=== PATIENT | female | born 1935 | race Caucasian/White ===

== ENCOUNTER 2017-10-03 08:13 | Emergency (ER) | payer OTHER ==
[~2017-10-03] VITALS: Ht 157.5 cm; Wt 54.4 kg
[~2017-10-03 08:13] MED LIST: AMLO-218 PO; ASPI-664 PO; CARV6.25 PO; CLON-379 PO; DICL50TA11 PO; DOCU-144 PO; LOSA1TAB20 PO; POLY17PO6 PO
[2017-10-03] MEDS ORDERED: ONDANSETRON 4 MG INJ IV STA (08:17)
[2017-10-03] MEDS ORDERED: NITROGLYCERIN 2% 1 GM OINT PKT TD STA (08:17)
[2017-10-03] MEDS ORDERED: morphine 2 MG INJ IV STA (08:17)
[2017-10-03] MEDS ORDERED: NITROGLYCERIN (SL) 0.4 MG TAB SL ONE (08:30)
--- NOTE | 2017-10-03 08:30 | ERD ---
ER Documentation Chief Complaint Chief Complaint Generalized weakness and hypertension HPI This is an 82-year-old [place]bourgish speaking female. 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 The patient states that since this morning she has described generalized weakness. She states that her whole body feels weak. She denies any pain including no headache and no chest pain and no shortness of breath. She denies abdominal pain or back pain. EMS has noted that her blood pressure was significantly elevated with systolic blood pressure in the 250 range with diastolic in the 110 range. The patient has multiple blood pressure medications and states compliance. She denies any fevers chills or illness. No dysuria urgency or frequency. ROS All systems reviewed and are negative except as per history of present illness. Medications Home Meds Reported Medications Docusate Sodium* (Colace*) 100 Mg Capsule, 100 MG PO DAILY, #30 CAP 06/26/17 Carvedilol* (Coreg*) 6.25 Mg Tablet, 6.25 MG PO BID, #60 TAB 06/26/17 Aspirin (Low Dose Aspirin) 81 Mg Tablet.dr, 81 MG PO DAILY, #30 TAB 06/26/17 Polyethylene Glycol* (Miralax*) 17 Gm Powd.pack, 17 GM PO DAILY, #30 PACKET 06/26/17 Clonidine Hcl* (Clonidine Hcl*) 0.1 Mg Tab, 0.1 MG PO TID Y for ELEVATED BLOOD PRESSURE, TAB 06/26/17 Amlodipine Besylate* (Norvasc*) 10 Mg Tablet, 10 MG PO DAILY, TAB 06/26/17 Losartan-Hydrochlorothiazide (Losartan-HCTZ) 100-25 Mg Tab, 1 TAB PO DAILY, TAB 06/26/17 Diclofenac Sodium* (Diclofenac Sodium*) 50 Mg Tablet.dr, 50 MG PO BID, #60 TAB 06/26/17 Allergies Allergies: Coded Allergies: No Known Allergy (Unverified , 06/26/17) PMhx/Soc History of Surgery: No Anesthesia Reaction: No Hx Neurological Disorder: No Hx Respiratory Disorders: No Hx Cardiac Disorders: Yes (HTN) Hx Psychiatric Problems: No Hx Miscellaneous Medical Probl: No Hx Alcohol Use: No Hx Substance Use: No Hx Tobacco Use: No FmHx Family History: No diabetes Physical Exam Vitals Vital Signs Date Time Temp Pulse Resp B/P Pulse Ox O2 Delivery O2 Flow Rate FiO2 10/03/17 08:58 70 24 231/86 96 11/24/17 08:58 82 19 172/59 100 Nasal Cannula 2.0 10/03/17 08:25 Nasal Cannula 2 Physical Exam General: Well developed, well nourished, no acute distress Head: Normocephalic, atraumatic. Eyes: Pupils equally reactive, EOM intact ENT: Moist mucous membranes Neck: Supple, no lymphadenopathy Respiratory: Rales at the bases bilaterally, no respiratory distress Cardiovascular: RRR, no murmurs, rubs, or gallops Abdominal: Soft, non-tender, non-distended, no peritoneal signs : Deferred MSK: No significant edema, no unilateral swelling, 5/5 strength Neurologic: Alert and oriented, moving all extremities, normal speech, no focal weakness, no cerebellar signs Skin: No rash Psych: Normal mood Result Diagram: 10/03/17 0840 10/03/17 0840 Results 24 hrs Laboratory Tests Test 10/03/17 08:40 White Blood Count 11.110^3/ul Red Blood Count 4.0010^6/ul Hemoglobin 11.7g/dl Hematocrit 36.0% Mean Corpuscular Volume 90.0fl Mean Corpuscular Hemoglobin 29.3pg Mean Corpuscular Hemoglobin Concent 32.5g/dl Red Cell Distribution Width 13.2% Platelet Count 88527^3/UL Mean Platelet Volume 9.5fl Neutrophils % 72.7% Lymphocytes % 16.4% Monocytes % 6.5% Eosinophils % 3.1% Basophils % 0.5% Nucleated Red Blood Cells % 0.0/100WBC Neutrophils # 8.110^3/ul Lymphocytes # 1.810^3/ul Monocytes # 0.710^3/ul Eosinophils # 0.310^3/ul Basophils # 0.110^3/ul Nucleated Red Blood Cells # 0.010^3/ul Prothrombin Time 12.1Sec Prothrombin Time Ratio 0.9 INR International Normalized Ratio 0.90 Activated Partial Thromboplast Time 25.1Sec Sodium Level 143mmol/L Potassium Level 3.8mmol/L Chloride Level 101mmol/L Carbon Dioxide Level 32mmol/L Anion Gap 14 Blood Urea Nitrogen 20mg/dl Creatinine 0.58mg/dl Glucose Level 179mg/dl Calcium Level 9.4mg/dl Total Bilirubin 0.4mg/dl Direct Bilirubin 0.00mg/dl Indirect Bilirubin 0.4mg/dl Aspartate Amino Transf (AST/SGOT) 28IU/L Alanine Aminotransferase (ALT/SGPT) 26IU/L Alkaline Phosphatase 86IU/L Troponin I < 0.012ng/ml B-Type Natriuretic Peptide 359PG/ML Total Protein 8.0g/dl Albumin 4.1g/dl Globulin 3.90g/dl Albumin/Globulin Ratio 1.05 Current Medications Medications (Trade) Dose Ordered Sig/Gabby Route PRN Reason Start Time Stop Time Status Last Admin Dose Admin Nitroglycerin (Nitroglycerin 2% Oint) 1 inch ONCE STAT TD 10/03/17 08:17 10/03/17 08:19 DC 10/03/17 08:44 Morphine Sulfate (morphine) 2 mg ONCE STAT IV 10/03/17 08:17 10/03/17 08:19 DC 10/03/17 08:44 Ondansetron HCl (Zofran Inj) 4 mg ONCE STAT IV 10/03/17 08:17 10/03/17 08:19 DC 10/03/17 08:44 Nitroglycerin (Nitroglycerin (Sl Tab) 0.4 Mg) 1 tab ONCE ONCE SL 10/03/17 08:30 10/03/17 08:31 DC 10/03/17 08:52 Furosemide (Lasix) 40 mg ONCE ONCE IV 10/03/17 09:00 10/03/17 09:01 DC 10/03/17 08:52 Aspirin (Aspirin) 162 mg ONCE ONCE PO 10/03/17 10:00 10/03/17 10:01 DC 10/03/17 09:47 Ondansetron HCl (Zofran Inj) 4 mg ER BRIDGE PRN IV NAUSEA AND/OR VOMITING 10/03/17 10:00 10/04/17 09:59 Acetaminophen (Tylenol Tab) 650 mg ER BRIDGE PRN PO MILD PAIN/FEVER 10/03/17 10:00 10/04/17 09:59 Procedures/MDM EKG, MONITORS, & DIAGNOSTIC IMAGING: EKG: I reviewed and interpreted a 12-lead EKG. Rhythm: Normal sinus rhythm Ectopy: None Intervals: Left bundle branch block which appears to be old based on prior EKG ST segments: No elevations or depressions T waves: No contiguous inversions Repeat EKG EKG: I reviewed and interpreted a 12-lead EKG. Rhythm: Normal sinus rhythm Ectopy: None Intervals: Left bundle branch block which appears to be old based on prior EKG ST segments: No elevations or depressions T waves: No contiguous inversions Chest x-ray: Chest x-ray: I reviewed and interpreted a 1 view of the chest Mediastinum: No enlargement Cardiac silhouette: No cardiomegaly Airspace: Interstitial process consistent with pulmonary edema Bones: No evidence of fracture CT brain: No evidence of acute intracranial process Per radiologist LAB INTERPRETATION: Negative troponin MEDICAL DECISION MAKING: This patient presents with significant hypertension, rales on lung examination and generalized weakness. I believe her presentation is consistent with hypertensive urgency and emergency. The patient has evidence of pulmonary edema. Reviewing the patient's prior echocardiogram her EF was 60% with no significant diastolic dysfunction. Consider new heart failure versus flash pulmonary edema. No respiratory distress and no indication for nitroglycerin drip or BiPAP at this time. Continue to monitor. The patient will benefit from blood pressure reduction. The patient has no headache or chest pain she will benefit from cardiac rule out, CT imaging of the brain to rule out intracranial hemorrhage. The patient verbalizes compliance with her blood pressure medication. No evidence of infectious process. Unclear trigger at this point. Her EKG shows a left bundle branch block with no evidence of Sgarbossa's Criteria and this is consistent with old EKGs. No indication for STEMI Nurse Sexual Assault activation. ER COURSE: The patient CT brain is negative. Aspirin provided. The patient was given nitroglycerin tablet, nitroglycerin paste and eventually Lasix. The patient's blood pressure had a reduction in mean arterial pressure greater than 20%. Her respiratory status is improving. The patient still does not require nitroglycerin drip or positive pressure ventilation. The family has arrived and states that the patient is inconsistent with taking her medications which is the likely trigger. The patient will be admitted for further management. I kept the patient and/or family informed of laboratory and diagnostic imaging results throughout the emergency room course. DISPOSITION PLAN: Telemetry admission for stabilization of hypertensive emergency CONSULTATION: Accepting care team and consultations: I discussed the current laboratory data, diagnostic imaging and emergency care provided. Admitting team: Dr. Perez Admitting team indication: Insurance directed Departure Diagnosis: Primary Impression: Hypertensive emergency Additional Impression: Acute pulmonary edema Condition: Stable NATHANIEL SHARMA MD Oct 03, 2017 08:30
--- NOTE | 2017-10-03 08:39 | RADRPT ---
PROCEDURE: XR Chest. CLINICAL INDICATION: Chest pain. TECHNIQUE: Single frontal view. COMPARISON: 06/26/2017. FINDINGS: There is bilateral interstitial disease consistent with pulmonary edema, worse than seen previously. Heart is mildly enlarged. There is calcification in the aorta consistent with atherosclerosis. There is no pleural effusion. There is no pneumothorax. IMPRESSION: 1. Pulmonary edema, worse than seen previously. 2. Cardiomegaly and atherosclerosis. 3. Otherwise unremarkable chest radiograph. RPTAT: QQ .Nic Jovel MD, MD Date Time Electronically viewed and signed by .Nic Jovel MD, MD on 10/03/2017 08:39 .R/
[2017-10-03 08:58] VITALS: Ht 157.5 cm; Wt 54.4 kg
[2017-10-03] MEDS ORDERED: FUROSEMIDE 40 MG INJ IV ONE (09:00)
[2017-10-03 09:03] LABS: BASOPHIL # 0.1 10^3/ul (0.0-0.1); BASOPHILS % 0.5 % (0.0-2.0); EOSINOPHILS # 0.3 10^3/ul (0.0-0.5); EOSINOPHILS % 3.1 % (0.0-7.0); HEMOGLOBIN 11.7 g/dl (12.0-16.0); LYMPHOCYTES # 1.8 10^3/ul (0.8-2.9); LYMPHOCYTES % 16.4 % (15.0-51.0); MEAN CORPUSCULAR HEMOGLOBIN 29.3 pg (29.0-33.0); MEAN CORPUSCULAR HGB CONC 32.5 g/dl (32.0-37.0); MEAN PLATELET VOLUME 9.5 fl (7.4-10.4); MONOCYTE # 0.7 10^3/ul (0.3-0.9); MONOCYTES % 6.5 % (0.0-11.0); NEUTROPHIL # 8.1 10^3/ul (1.6-7.5); NEUTROPHILS % 72.7 % (39.0-77.0); PLATELET COUNT 393 10^3/UL (140-415); RED CELL DISTRIBUTION WIDTH 13.2 % (11.5-14.5); WHITE BLOOD COUNT 11.1 10^3/ul (4.8-10.8)
[2017-10-03 09:22] LABS: INR 0.9; PROTIME 12.1 Sec (12.2-14.2); PT RATIO 0.9
[2017-10-03 09:23] LABS: PARTIAL THROMBOPLASTIN TIME 25.1 Sec (25.0-35.0)
[2017-10-03 09:24] LABS: ALANINE AMINOTRANSFERASE 26 IU/L (13-69); ALBUMIN 4.1 g/dl (3.3-4.9); ALBUMIN/GLOBULIN RATIO 1.05; ALKALINE PHOSPHATASE 86 IU/L (42-121); ANION GAP 14 (8-16); ASPARTATE AMINO TRANSFERASE 28 IU/L (15-46); BILIRUBIN,INDIRECT 0.4 mg/dl (0-1.1); BILIRUBIN,TOTAL 0.4 mg/dl (0.2-1.3); BLOOD UREA NITROGEN 20 mg/dl (7-20); CALCIUM 9.4 mg/dl (8.4-10.2); CARBON DIOXIDE 32 mmol/L (21-31); CHLORIDE 101 mmol/L (97-110); CREATININE 0.58 mg/dl (0.44-1.00); GLUCOSE 179 mg/dl (70-220); POTASSIUM 3.8 mmol/L (3.5-5.1); SODIUM 143 mmol/L (135-144)
--- NOTE | 2017-10-03 09:31 | RADRPT ---
PROCEDURE: CT Brain without contrast. CLINICAL INDICATION: Headache TECHNIQUE: A CT of the brain was performed on a GE [employer] 64-slice CT scanner utilizing axial imaging from the skull base through the vertex without IV contrast. Multiplanar reformatted images were made. Images were reviewed on a PACS workstation. The CTDIvol is 45.0 mGy and the DLP is 720. 2 mGycm. DICOM images are available. One or more of the following dose reduction techniques were utilized: 1.) Automated exposure control 2.) Adjustment of the mA +/- kV according to patient's size 3.) Use of iterative reconstruction technique. COMPARISON: None. FINDINGS: Left frontal lobe cortical calcifications are seen. There is no intracranial hemorrhage, mass effect , or midline shift. No extra-axial fluid collection is seen. The ventricles and sulci are normal in size and configuration. There is patchy decreased attenuation in the periventricular and deep white matter, somewhat nonspecific though likely reflective of mild microvascular ischemic disease. the brainstem and cerebellum are unremarkable. The hart white matter differentiation appears well-preser collette. The visualized paranasal sinuses and osseous structures are grossly unremarkable. Bilateral in ternal carotid arteries are calcified. IMPRESSION: 1. No evidence of acute intracranial pathology. 2. Moderate microvascular ischemic disease in the periventricular and deep white matter. 3. 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 Physician Jesus Date Time Electronically viewed and signed by Physician Jesus on 10/03/2017 09:30 /
[2017-10-03 09:33] LABS: B-TYPE NATRIURETIC PEPTIDE 359 PG/ML (0-450)
[2017-10-03 09:43] LABS: TROPONIN-I < 0.012 ng/ml (0.00-0.12)
[2017-10-03] MEDS ORDERED: ONDANSETRON 4 MG INJ IV PRN (10:00)
[2017-10-03] MEDS ORDERED: ACETAMINOPHEN 325 MG TAB PO PRN (10:00)
[2017-10-03] MEDS ORDERED: ASPIRIN 81 MG TAB PO ONE (10:00)
[2017-10-03 14:57] VITALS: BP 123/53; PULSE 55; RESP 17
[2017-10-03 15:37] LABS: CREATINE KINASE 42 IU/L (23-200)
[2017-10-03 15:50] LABS: CK-MB 1.36 ng/ml (0.0-2.4)
[2017-10-03 15:55] LABS: TROPONIN-I < 0.012 ng/ml (0.00-0.12)
== END 2017-10-03 17:54 | disposition left against medical advice (07) ==
LOC: E/R 08:13
DX: I16.1 Hypertensive emergency (principal); R40.2252 Coma scale, best verbal response, oriented, at arrival to emergency department; J81.0 Acute pulmonary edema; I10 Essential (primary) hypertension; R40.2142 Coma scale, eyes open, spontaneous, at arrival to emergency department; R40.2362 Coma scale, best motor response, obeys commands, at arrival to emergency department; R51 Headache; R07.9 Chest pain, unspecified; Z79.82 Long term (current) use of aspirin
CPT/HCPCS: 36415; 70450; 71010; 80053; 82550; 82553; 83880; 84484; 85025; 85610; 85730; 96374; 96375; J1940; J2270; J2405; Z7502; Z7610

== ENCOUNTER 2019-06-08 14:31 | Inpatient (IN) | payer OTHER ==
[~2019-06-08] VITALS: Ht 149.9 cm; Wt 59.1 kg
[~2019-06-08 14:31] MED LIST changes: +AMLO-147 PO; -ASPI-664 PO; +ASPI-817 PO; +ASPI81TA52 PO; +ATOR20TA65 PO; +CARV6.2579 PO; +ENOX60DI13 SQ; +ERGO500013 PO; +HYDR25TA6 PO; +LATA2.5D2 BOTH EYES; +LISI-471 PO; -LOSA1TAB20 PO; +LOSA1TAB25 PO; +MELO15TA30 PO; +NITR0.4T32 SL
[2019-06-08] MEDS ORDERED: ASPIRIN 81 MG TAB PO STA (14:39)
[2019-06-08] MEDS ORDERED: NITROGLYCERIN 50 MG/D5W (PMX) 250 ML IV STA (14:40)
[2019-06-08] MEDS ORDERED: NITROGLYCERIN (SL) 0.4 MG TAB SL PRN (15:00)
[2019-06-08] MEDS ORDERED: METOPROLOL 5 MG INJ IV ONE (15:30)
[2019-06-08] MEDS ORDERED: ACETAMINOPHEN 325 MG TAB PO PRN (17:00)
[2019-06-08] MEDS ORDERED: ONDANSETRON 4 MG INJ IV PRN (17:00)
--- NOTE | 2019-06-08 17:49 | ERD ---
ER Documentation Chief Complaint Chief Complaint C/O "HEARTBURN" HPI 84-year-old female [place] speaking with a history of hypertension presenting with acute onset of chest pain 1 hour prior to arrival. She states she felt a burning in the left side of her chest with associated shortness of breath and diaphoresis. She checked her blood pressure and it was very high with a systolic blood pressure over 200. She is taking 2 blood pressure medications that she knows of but does not know the names. She was brought in by ambulance with an EKG showing left bundle branch block. There was a concern for possible acute coronary syndrome. Currently the patient denies any chest pain. She just states that she feels "hot" in her head. Denies any shortness of breath at this time. No dizziness, nausea, vomiting, focal weakness or numbness. ROS All systems reviewed and are negative except as per history of present illness. Medications Home Meds Reported Medications Clonidine Hcl* (Clonidine Hcl*) 0.1 Mg Tab, 0.1 MG PO NEEDED PRN for PRN, TAB 06/08/19 Losartan-Hydrochlorothiazide (Losartan-HCTZ) 100-25 Mg Tab, 1 TAB PO DAILY, TAB 06/08/19 Meloxicam* (Mobic*) 15 Mg Tablet, 15 MG PO DAILY, #30 TAB 06/08/19 Carvedilol* (Carvedilol*) 6.25 Mg Tablet, 6.25 MG PO BID, #60 TAB 06/08/19 Latanoprost (Latanoprost) 2.5 Ml Drops, 1 DROP BOTH EYES QHS, #1 BOTTLE 06/08/19 Aspirin* (Aspirin* EC) 81 Mg Tablet.dr, 81 MG PO DAILY, TAB 06/08/19 Amlodipine Besylate* (Amlodipine Besylate*) 10 Mg Tablet, 10 MG PO DAILY, #30 TAB 06/08/19 Diclofenac Sodium* (Diclofenac Sodium*) 50 Mg Tablet.dr, 50 MG PO BID, #60 TAB 06/08/19 Ergocalciferol (Vitamin D2) (VITAMIN D2) 50,000 Unit Capsule, 10675 UNIT PO Q7D, CAP 06/08/19 Discontinued Reported Medications Docusate Sodium* (Colace*) 100 Mg Capsule, 100 MG PO DAILY, #30 CAP 06/26/17 Carvedilol* (Coreg*) 6.25 Mg Tablet, 6.25 MG PO BID, #60 TAB 06/26/17 Aspirin (Low Dose Aspirin) 81 Mg Tablet.dr, 81 MG PO DAILY, #30 TAB 06/26/17 Polyethylene Glycol* (Miralax*) 17 Gm Powd.pack, 17 GM PO DAILY, #30 PACKET 06/26/17 Clonidine Hcl* (Clonidine Hcl*) 0.1 Mg Tab, 0.1 MG PO TID PRN for ELEVATED BLOOD PRESSURE, TAB 06/26/17 Amlodipine Besylate* (Norvasc*) 10 Mg Tablet, 10 MG PO DAILY, TAB 06/26/17 Losartan-Hydrochlorothiazide (Losartan-HCTZ) 100-25 Mg Tab, 1 TAB PO DAILY, TAB 06/26/17 Diclofenac Sodium* (Diclofenac Sodium*) 50 Mg Tablet.dr, 50 MG PO BID, #60 TAB 06/26/17 Allergies Allergies: Coded Allergies: No Known Allergy (Unverified , 06/08/19) PMhx/Soc Medical and Surgical Hx: pt denies Surgical Hx History of Surgery: No Anesthesia Reaction: No Hx Neurological Disorder: No Hx Respiratory Disorders: No Hx Cardiac Disorders: Yes (, Possible mitral valve prolapse) Hx Psychiatric Problems: No Hx Miscellaneous Medical Probl: No Hx Alcohol Use: No Hx Substance Use: No Hx Tobacco Use: No Smoking Status: Never smoker FmHx Family History: No diabetes Physical Exam Vitals Vital Signs Date Temp Pulse Resp B/P (MAP) Pulse Ox O2 O2 Flow FiO2 Time Delivery Rate 06/08/19 132 18 164/75 98 Room Air 15:10 (104) 06/08/19 98.9 143 22 204/93 95 Room Air 14:56 (130) 06/08/19 Nasal 2 14:56 Cannula 06/08/19 99.2 140 18 229/114 97 14:34 (152) Physical Exam const: No acute distress. Well-appearing, no diaphoresis Head: Atraumatic Eyes: Normal Conjunctiva, PERRLA, EOMI, no nystagmus ENT: Normal External Ears, Nose and Mouth. Neck: Full range of motion. No meningismus. no JVD Resp: Clear to auscultation bilaterally Cardio: Regular rate and rhythm, systolic murmur. 2+ distal pulses in all 4 extremities Abd: Soft, non tender, non distended. Normal bowel sounds Skin: No petechiae or rashes Back: No midline or flank tenderness Ext: No cyanosis, or edema Neur: Awake and alert, oriented x3, cranial nerves intact, strength and sensations intact in all 4 extremities Psych: Normal Mood and Affect Result Diagram: 06/08/19 1441 06/08/19 1441 Results 24 hrs Laboratory Tests Test 06/08/19 14:41 White Blood Count 10.6 10^3/ul Red Blood Count 3.91 10^6/ul Hemoglobin 11.4 g/dl Hematocrit 35.7 % Mean Corpuscular Volume 91.3 fl Mean Corpuscular Hemoglobin 29.2 pg Mean Corpuscular Hemoglobin Concent 31.9 g/dl Red Cell Distribution Width 13.0 % Platelet Count 385 10^3/UL Mean Platelet Volume 9.6 fl Immature Granulocytes % 0.800 % Neutrophils % 59.6 % Lymphocytes % 28.1 % Monocytes % 8.3 % Eosinophils % 2.5 % Basophils % 0.7 % Nucleated Red Blood Cells % 0.0 /100WBC Immature Granulocytes # 0.080 10^3/ul Neutrophils # 6.3 10^3/ul Lymphocytes # 3.0 10^3/ul Monocytes # 0.9 10^3/ul Eosinophils # 0.3 10^3/ul Basophils # 0.1 10^3/ul Nucleated Red Blood Cells # 0.0 10^3/ul Prothrombin Time 11.5 Sec Prothrombin Time Ratio 0.9 INR International Normalized Ratio 0.83 Activated Partial Thromboplast Time 24.7 Sec Sodium Level 143 mmol/L Potassium Level 3.8 mmol/L Chloride Level 102 mmol/L Carbon Dioxide Level 29 mmol/L Anion Gap 12 Blood Urea Nitrogen 33 mg/dl Creatinine 0.76 mg/dl Est Glomerular Filtrat Rate mL/min mL/min Glucose Level 164 mg/dl Calcium Level 9.6 mg/dl Troponin I < 0.012 ng/ml Current Medications Medications Dose Sig/Gabby Start Time Status Last (Trade) Ordered Route PRN Stop Time Admin Dose Reason Admin Aspirin 162 mg ONCE STAT 06/08/19 DC 06/08/19 (Aspirin) PO 14:39 14:45 06/08/19 14:40 1 tab Q5M UP TO 3 06/08/19 Nitroglycerin DOSES PRN 15:00 SL .CHEST (Nitroglyceri PAIN n (Sl Tab) 0.4 Mg) 250 ml @ 6 ONCE STAT 06/08/19 06/08/19 Nitroglycerin mls/hr IV 14:40 06/10/19 14:46 / Dextrose 08:19 Metoprolol 5 mg ONCE ONCE 06/08/19 DC 06/08/19 Tartrate IV 15:30 15:19 (Lopressor) 06/08/19 15:31 Ondansetron 4 mg ER BRIDGE 06/08/19 HCl (Zofran PRN IV 17:00 Inj) NAUSEA/VOMITI 06/09/19 16:59 NG 650 mg ER BRIDGE 06/08/19 Acetaminophen PRN PO 17:00 (Tylenol .MILD PAIN 06/09/19 16:59 Tab) 1-3 OR TEMP Procedures/MDM EMERGENT LABS AND DIAGNOSTIC STUDIES: Lab Results above were reviewed and interpreted by me. CBC: no evidence of clinically significant anemia or evidence of infection BMP: No e/o clinically significant electrolyte abnormality severe acidosis, alkalosis, renal failure, diabetic ketoacidosis Troponin within normal limits, not indicative of cardiac ischemia 12-lead EKG was interpreted by Bimal Yang MD: Sinus tachycardia with ventricular rate of 143 beats per minute Normal axis Normal intervals No acute ST or T wave changes suggestive of acute ischemia or STEMI. Repeat EKG: Rate/Rhythm: Normal Sinus Rhythm at 73 bpm QRS, ST, T-waves: Left bundle branch block with intraventricular conduction delay. No changes consistent w/ acute ischemia Impression: No evidence of ischemia or arrhythmia Radiology Results as interpreted by Radiology below were reviewed by Blaise Yang MD: Chest x-ray shows no acute abnormalities Initial Nursing notes reviewed. Previous Medical Records requested via the Electronic Health Record. EMERGENCY DEPARTMENT COURSE / MEDICAL DECISION MAKING: Patient presenting with chest pain now resolved. She was noted to be extremely hypertensive. She was treated with nitroglycerin with improvement of her symptoms. She was initially on a nitroglycerin drip but this was discontinued. Metoprolol was given IV as well for tachycardia. Initially she was hypertensive and tachycardic but both these vital signs have improved after treatment and the patient does feel much better. Initial troponin is negative. EKG is similar to prior EKGs in the past with no acute changes. I feel the patient would benefit from observation for blood pressure stabilization and ACS rule out. Accepting Care Team: Current data and ongoing care discussed. Time: Time of admission Primary Provider: Dr. Adams Departure Diagnosis: Primary Impression: Chest pain Chest pain type: unspecified Qualified Codes: R07.9 - Chest pain, unspecified Additional Impression: Hypertensive urgency Condition: Fair FELICIA YANG MD Jun 08, 2019 17:49
[2019-06-08] MEDS ORDERED: ZOLPIDEM 5 MG TAB PO PRN (19:00)
[2019-06-08] MEDS: ASPIRIN (EC) 81 MG TAB PO SCH (19:18)
[2019-06-08] MEDS: AMLODIPINE 10 MG TAB PO SCH (19:19)
[2019-06-08] MEDS: LISINOPRIL 20 MG TAB PO SCH (19:19)
[2019-06-08 19:33] VITALS: Ht 149.9 cm; Wt 59.1 kg
[2019-06-08 20:00] VITALS: BP 175/75; PULSE 64; RESP 19
[2019-06-08 21:00] VITALS: BP 124/59; PULSE 62; RESP 19
[2019-06-08] MEDS: LATANOPROST 0.005% 2.5 ML OPH BOTH EYES SCH (21:25)
[2019-06-08 23:59] VITALS: BP 112/52; PULSE 64; RESP 18
[2019-06-09 03:55] VITALS: BP 124/60; PULSE 63; RESP 18
[2019-06-09 07:10] VITALS: BP 142/64; PULSE 70; RESP 19
[2019-06-09] MEDS: ASPIRIN (EC) 81 MG TAB PO SCH (08:08)
[2019-06-09] MEDS: LISINOPRIL 20 MG TAB PO SCH (08:10)
[2019-06-09] MEDS: AMLODIPINE 10 MG TAB PO SCH (08:10)
[2019-06-09 11:25] VITALS: BP 108/56; PULSE 64; RESP 19
[2019-06-09] MEDS: ENOXAPARIN 60 MG/0.6 ML SYG SC SCH ×2 (11:53→21:13)
--- NOTE | 2019-06-09 12:22 | RADRPT ---
Echocardiogram Report Patient Name: Tara NAVAS ID: [id number] : 1935 (84y 4m)Study Date: 06/09/2019 7:22:57 AM Gender: FAccession #: [id number] Tech: Roland Ballard [facility] Location: 51 Ref.Physician: TIAN SIMONS Height(Cm): BSA: Weight(Kg): Quality: AdequateOrder Physician: TIAN SIMONS Account #: Procedures: Echocardiographic Report: Transthoracic echocardiogram with complete 2D, M-Mode, and doppler examination. Indications: Chest Pain, 2nd troponin elevated. Measurements: 2D/M Mode Doppler Measurement Value Normal Range Measurement Value Normal Range LVIDd 2D 4.2 [ 3.8 - 5.2 ] cm RICHAR VTI 1.3 [ 2.0 - 4.0 ] cm2 LVIDs 2D 2.5 [ 2.2 - 3.5 ] cm AV Mean Jt 1.7 [ 70.0 - 90.0 ] cm/sec LVPWd 2D 1.1 [ 0.6 - 0.9 ] cm AV Mean PG 13.0 [ 2.0 - 4.0 ] mmHg IVSd 2D 1.1 [ 0.6 - 0.9 ] cm AV VTI 59.7 cm AoR Diam 2D 2.1 [ 2.3 - 3.1 ] cm LVOT Mean Jt 0.8 [ 60.0 - 80.0 ] cm/sec EDV 2D 78.1 [ 46.0 - 106.0 ] ml LVOT Mean PG 3.0 [ 1.0 - 3.0 ] mmHg ESV 2D 22.1 [ 14.0 - 42.0 ] ml LVOT Peak Jt 1.1 [ 70.0 - 110.0 ] cm/sec EF 2D 71.7 [ 54.0 - 74.0 ] percent LVOT Peak PG 5.0 [ 2.0 - 6.0 ] mmHg LA Dimen 2D 3.2 [ 2.7 - 3.8 ] cm LVOT VTI 26.7 [ 20.0 - 30.0 ] cm LVOT Diam 1.9 [ 2.1 - 2.5 ] cm MV E Peak Jt 1.2 [ 60.0 - 130.0 ] cm/sec MV A Peak Jt 1.1 [ 100.0 - 120.0 ] cm/sec MV E/A 1.1 [ 0.8 - 1.5 ] ratio MV Decel Time 278 [ 104 - 258 ] msec Lat E` Jt 0.1 [ 10.0 - 15.0 ] cm/sec Lateral E/E` 19.2 [ 1.0 - 2.0 ] ratio Med E` Jt 0.0 cm/sec MV E/A 1.1 [ 0.8 - 1.5 ] ratio TR Peak Jt 2.9 [ 100.0 - 280.0 ] cm/sec TR Peak PG 33.0 mmHg RVSP 36.0 [ 10.0 - 36.0 ] mmHg RA Pressure 3.0 mmHg Findings: Left Ventricle: Normal left ventricular systolic function. Normal left ventricular cavity size. Mild concentric left ventricular hypertrophy. Ejection fraction is visually estimated at 60 %. Tissue Doppler/Mitral Doppler indices are consistent with pseudonormalization with mildly elevated left atrial pressure (Stage II diastolic dysfunction). Right Ventricle: Normal right ventricular size. Normal right ventricular systolic function. Left Atrium: The left atrium is normal in size. Right Atrium: The right atrium is normal in size. Mitral Valve: Mild mitral leaflet calcification. Moderate mitral annular calcification. Mild mitral valve regurgitation. Aortic Valve: Mild aortic stenosis. Aortic cusps appear moderately calcified. No aortic regurgitation. Tricuspid Valve: Normal appearance of the tricuspid valve. The estimated Peak RVSP is 36 mmHg. There is mild tricuspid regurgitation. Pulmonic Valve: Pulmonic valve not well visualized. Pericardium: Normal pericardium with no significant pericardial effusion. Aorta: Normal aortic root. IVC: Normal size and normal respiratory collapse consistent with normal right atrial pressure. Conclusions: Normal left ventricular systolic function. Normal left ventricular cavity size. Mild concentric left ventricular hypertrophy. Ejection fraction is visually estimated at 60 %. Tissue Doppler/Mitral Doppler indices are consistent with pseudonormalization with mildly elevated left atrial pressure (Stage II diastolic dysfunction). Normal right ventricular size. Normal right ventricular systolic function. Mild mitral valve regurgitation. Mild aortic stenosis. No aortic regurgitation. There is mild tricuspid regurgitation. Normal pericardium with no significant pericardial effusion. Electronically Signed By: Melchor Elkins 2019-06-09 12:21:45 PDT
--- NOTE | 2019-06-09 13:25 | HP ---
DATE OF ADMISSION: 06/09/2019 CHIEF COMPLAINT: Chest pain. HISTORY OF PRESENT ILLNESS: An 84-year-old [place]i female with a history of hypertension, presented to the emergency room with acute onset of chest pain for about 1 hour prior to arrival. The patient reported associated shortness of breath and diaphoresis. Initial blood pressure showed systolic of over 200. Her chest pain resolved after her blood pressure was controlled. Serial troponins show pr ogressive elevation consistent with acute non-STEMI. The patient had no chest pain at the time of my visit. PAST MEDICAL HISTORY: Hypertension. MEDICATIONS PRIOR TO ADMISSION: 1. Clonidine. 2. Losartan. 3. Hydrochlorothiazide. 4. Meloxicam. 5. Carvedilol. 6. Latanoprost. 7. Aspirin. 8. Amlodipine. 9. Diclofenac sodium. 10. Vitamin B supplements. SOCIAL HISTORY: Patient lives at home. There is no history of tobacco or alcohol use. PHYSICAL EXAMINATION: GENERAL: Well-developed, well-nourished elderly female who is in no apparent distress. VITAL SIGNS: Blood pressure 142/64, pulse 70, temperature 97.9, respiration 19, saturation 96% on ro om air. HEENT: Extraocular muscles intact. Pupils equal and reactive to light bilaterally. Sclerae are ani cteric. Oropharynx is clear and moist. NECK: Supple, no JVD, no carotid bruits. LUNGS: Clear to auscultation bilaterally. CARDIAC: Regular rate and rhythm. No murmurs or gallops. ABDOMEN: Soft, nontender, nondistended, normoactive bowel sounds. EXTREMITIES: No clubbing, cyanosis, or edema. NEUROLOGICAL: Nonfocal. LABORATORY DATA: CBC is within normal limits. Basic metabolic panel is also within normal limits. Troponins 0.012, 0.387, 0.516. A 12-lead EKG showed sinus tachycardia with no ST-T wave changes. ASSESSMENT: 1. An 84-year-old female with acute infarction. 2. Hypertensive urgency, resolved. 3. Poorly controlled hypertension. PLAN: 1. Admit to telemetry. 2. Resume home medications. 3. Start Lovenox. 4. Arrange transfer to [facility] or [place] for cardiac catheterization. The golf course laborer in our facility is not available. The case was discussed with Dr. Elkins. Dictated By: TIAN SCOTT/ALEXANDRA Conf#: [id number] [facility]#: [id number]
[2019-06-09] MEDS ORDERED: REGADENOSON 0.4 MG/5 ML SYG ONE (14:14)
--- NOTE | 2019-06-09 15:09 | CONS ---
Assessment/Plan Assessment/Plan Hospital Course (Demo Recall) Hypertension urgency/emergency Elevated troponin, trending down Preserved left ventricular ejection fraction Left bundle branch block ECG Patient presents with uncontrolled blood pressure, neck and right shoulder pain. Symptoms have resolved after blood pressure control ECG with left bundle branch block. Troponins are trending down. She otherwise denies exertional chest pain or shortness of breath prior to this episode Elevated troponin likely secondary to hypertension, would proceed with vasodilatory nuclear perfusion study to evaluate for obstructive coronary artery disease. Continue aspirin therapy, beta-mirna, would add statin therapy if no contraindication Consultation Date/Type/Reason Admit Date/Time Jun 09, 2019 at 08:43 Type of Consult Cardiology Reason for Consultation Hypertension elevated troponin Date/Time of Note DATE: 06/09/19 TIME: 15:06 Hx of Present Illness This is an 84-year-old female with past history of hypertension who presents wi th uncontrolled blood pressure. Patient states her blood pressure has been high over the past day. She has symptoms of right arm pain which was sharp. She also felt some headache and occasional neck pain. She denies left-sided chest pain. Once her blood pressure improved, her symptoms resolved. She otherwise denies exertional chest pain, shortness of breath, palpitations or dizziness. 12 point review of systems was performed with all pertinent positives and negatives mentioned above and all else is negative Past Medical History Medical History: hypertension Home Meds Active Scripts Enoxaparin Sodium* (Lovenox*) 60 Mg/0.6 Ml Disp.syrin, 60 MG SQ Q12 for 2 Days, SYR Prov:TIAN SIMONS MD 06/09/19 Lisinopril* (Lisinopril*) 20 Mg Tablet, 20 MG PO DAILY for 30 Days, TAB Prov:TIAN SIMONS MD 06/09/19 Carvedilol* (Carvedilol*) 6.25 Mg Tablet, 12.5 MG PO BID for 30 Days, TAB Prov:TIAN SIMONS MD 06/09/19 Nitroglycerin* (Nitroglycerin* SL) 0.4 Mg Tab.subl, 1 TAB SL .Q5M UP TO 3 DOSES PRN for .CHEST PAIN for 10 Days Prov:TIAN SIMONS MD 06/09/19 Reported Medications Clonidine Hcl* (Clonidine Hcl*) 0.1 Mg Tab, 0.1 MG PO NEEDED PRN for PRN, TAB 06/08/19 Losartan-Hydrochlorothiazide (Losartan-HCTZ) 100-25 Mg Tab, 1 TAB PO DAILY, TAB 06/08/19 Latanoprost (Latanoprost) 2.5 Ml Drops, 1 DROP BOTH EYES QHS, #1 BOTTLE 06/08/19 Aspirin* (Aspirin* EC) 81 Mg Tablet.dr, 81 MG PO DAILY, TAB 06/08/19 Amlodipine Besylate* (Amlodipine Besylate*) 10 Mg Tablet, 10 MG PO DAILY, #30 TAB 06/08/19 Ergocalciferol (Vitamin D2) (VITAMIN D2) 50,000 Unit Capsule, 96490 UNIT PO Q7D, CAP 06/08/19 Discontinued Reported Medications Meloxicam* (Mobic*) 15 Mg Tablet, 15 MG PO DAILY, #30 TAB 06/08/19 Carvedilol* (Carvedilol*) 6.25 Mg Tablet, 6.25 MG PO BID, #60 TAB 06/08/19 Diclofenac Sodium* (Diclofenac Sodium*) 50 Mg Tablet.dr, 50 MG PO BID, #60 TAB 06/08/19 Docusate Sodium* (Colace*) 100 Mg Capsule, 100 MG PO DAILY, #30 CAP 06/26/17 Carvedilol* (Coreg*) 6.25 Mg Tablet, 6.25 MG PO BID, #60 TAB 06/26/17 Aspirin (Low Dose Aspirin) 81 Mg Tablet.dr, 81 MG PO DAILY, #30 TAB 06/26/17 Polyethylene Glycol* (Miralax*) 17 Gm Powd.pack, 17 GM PO DAILY, #30 PACKET 06/26/17 Clonidine Hcl* (Clonidine Hcl*) 0.1 Mg Tab, 0.1 MG PO TID PRN for ELEVATED BLOOD PRESSURE, TAB 06/26/17 Amlodipine Besylate* (Norvasc*) 10 Mg Tablet, 10 MG PO DAILY, TAB 06/26/17 Losartan-Hydrochlorothiazide (Losartan-HCTZ) 100-25 Mg Tab, 1 TAB PO DAILY, TAB 06/26/17 Diclofenac Sodium* (Diclofenac Sodium*) 50 Mg Tablet.dr, 50 MG PO BID, #60 TAB 06/26/17 Medications Current Medications Nitroglycerin (Nitroglycerin (Sl Tab) 0.4 Mg) 1 tab Q5M UP TO 3 DOSES PRN SL .CHEST PAIN; Start 06/08/19 at 15:00 Nitroglycerin/ Dextrose 250 ml @ 6 mls/hr ONCE STAT IV Last administered on 06/08/19at 14:46; Admin Dose 6 MLS/HR; Start 06/08/19 at 14:40; Stop 06/10/19 at 08:19 Ondansetron HCl (Zofran Inj) 4 mg ER BRIDGE PRN IV NAUSEA/VOMITING; Start 06/08/19 at 17:00; Stop 06/09/19 at 16:59 Acetaminophen (Tylenol Tab) 650 mg ER BRIDGE PRN PO .MILD PAIN 1-3 OR TEMP; Start 06/08/19 at 17:00; Stop 06/09/19 at 16:59 Amlodipine Besylate (Norvasc) 10 mg DAILY PO Last administered on 06/09/19at 08:10; Admin Dose 10 MG; Start 06/08/19 at 19:00 Aspirin (Halfprin) 81 mg DAILY PO Last administered on 06/09/19at 08:08; Admin Dose 81 MG; Start 06/08/19 at 19:00 Clonidine (Catapres) 0.1 mg Q4 PRN PO sbp>160; Start 06/08/19 at 19:00 Latanoprost (Xalatan) 1 drop QHS BOTH EYES Last administered on 06/08/19at 21:25; Admin Dose 1 DROP; Start 06/08/19 at 21:00 Zolpidem Tartrate (Ambien) 5 mg HS MAY REPEAT X 1 PRN PO INSOMNIA; Start 06/08/19 at 19:00 Carvedilol (Coreg) 12.5 mg BID PO Last administered on 06/09/19at 08:09; Admin Dose 12.5 MG; Start 06/08/19 at 21:00 Lisinopril (Zestril) 20 mg DAILY PO Last administered on 06/09/19at 08:10; Admin Dose 20 MG; Start 06/08/19 at 19:00 Enoxaparin Sodium (Lovenox) 60 mg Q12 SC Last administered on 06/09/19at 11:53; Admin Dose 60 MG; Start 06/09/19 at 11:00 Allergies: Coded Allergies: No Known Allergy (Unverified , 06/08/19) Past Surgical History Past Surgical Hx: no surgical history Social History Alcohol Use: none Smoking Status: Never smoker Exam/Review of Systems Vital Signs Vitals Vital Signs Date Temp Pulse Resp B/P (MAP) Pulse Ox O2 O2 Flow FiO2 Time Delivery Rate 06/09/19 98.0 64 19 108/56 96 11:25 (73) 06/08/19 Nasal 2.0 18:45 Cannula Intake and Output 06/08/19 06/08/19 06/09/19 1515:00 23:00 07:00 IntakeIntake Total 320 ml 200 ml BalanceBalance 320 ml 200 ml Exam Constitutional: alert, oriented, well developed Head: normocephalic Respiratory: clear to auscultation, normal air movement Cardiovascular: regular rate and rhythm (S1-S2 heard) Gastrointestinal: soft, non-tender, bowel sounds Extremities: other (No significant edema) Labs Result Diagram: 06/08/19 1441 06/08/19 1441 Results 24hrs Laboratory Tests Test 06/08/19 20:32 06/09/19 03:01 06/09/19 12:14 Creatine Kinase 82 77 61 Creatine Kinase Index 4.2 4.9 3.7 Creatinine Kinase MB (Mass) 3.46 H 3.77 H 2.24 Troponin I 0.387 *H 0.516 *H 0.336 *H Medications Medications Current Medications Nitroglycerin (Nitroglycerin (Sl Tab) 0.4 Mg) 1 tab Q5M UP TO 3 DOSES PRN SL .CHEST PAIN; Start 06/08/19 at 15:00 Nitroglycerin/ Dextrose 250 ml @ 6 mls/hr ONCE STAT IV Last administered on 06/08/19at 14:46; Admin Dose 6 MLS/HR; Start 06/08/19 at 14:40; Stop 06/10/19 at 08:19 Ondansetron HCl (Zofran Inj) 4 mg ER BRIDGE PRN IV NAUSEA/VOMITING; Start 06/08/19 at 17:00; Stop 06/09/19 at 16:59 Acetaminophen (Tylenol Tab) 650 mg ER BRIDGE PRN PO .MILD PAIN 1-3 OR TEMP; Start 06/08/19 at 17:00; Stop 06/09/19 at 16:59 Amlodipine Besylate (Norvasc) 10 mg DAILY PO Last administered on 06/09/19at 08 :10; Admin Dose 10 MG; Start 06/08/19 at 19:00 Aspirin (Halfprin) 81 mg DAILY PO Last administered on 06/09/19 08:08; Admin Dose 81 MG; Start 06/08/19 at 19:00 Clonidine (Catapres) 0.1 mg Q4 PRN PO sbp>160; Start 06/08/19 at 19:00 Latanoprost (Xalatan) 1 drop QHS BOTH EYES Last administered on 06/08/19at 21:25; Admin Dose 1 DROP; Start 06/08/19 at 21:00 Zolpidem Tartrate (Ambien) 5 mg HS MAY REPEAT X 1 PRN PO INSOMNIA; Start 06/08/19 at 19:00 Carvedilol (Coreg) 12.5 mg BID PO Last administered on 06/09/19at 08:09; Admin Dose 12.5 MG; Start 06/08/19 at 21:00 Lisinopril (Zestril) 20 mg DAILY PO Last administered on 06/09/19at 08:10; Admin Dose 20 MG; Start 06/08/19 at 19:00 Enoxaparin Sodium (Lovenox) 60 mg Q12 SC Last administered on 06/09/19at 11:53; Admin Dose 60 MG; Start 06/09/19 at 11:00 Melchor Elkins DO Jun 09, 2019 15:09
[2019-06-09 16:20] VITALS: BP 146/67; PULSE 68; RESP 19
[2019-06-09 19:51] VITALS: BP 146/67; PULSE 75; RESP 18
[2019-06-09] MEDS: LATANOPROST 0.005% 2.5 ML OPH BOTH EYES SCH (20:12)
[2019-06-09] MEDS ORDERED: ATORVASTATIN 20 MG TAB PO SCH (21:00)
[2019-06-10 00:04] VITALS: BP 139/56; PULSE 71; RESP 18
[2019-06-10 03:58] VITALS: BP 132/63; PULSE 70; RESP 18
[2019-06-10 07:37] VITALS: BP 148/67; PULSE 65; RESP 16
[2019-06-10] MEDS: ASPIRIN (EC) 81 MG TAB PO SCH (08:16)
[2019-06-10] MEDS: AMLODIPINE 10 MG TAB PO SCH (08:17)
[2019-06-10] MEDS: LISINOPRIL 20 MG TAB PO SCH (08:17)
--- NOTE | 2019-06-10 09:00 | PDOCDIS ---
Discharge Instructions CONDITION [id number] Patient Condition: [id number] Good HOME CARE INSTRUCTIONS: [id number] Diet Instructions: [id number] FOLLOW UP/APPOINTMENTS Follow-up Plan pcp 1 week TIAN SIMONS MD Jun 10, 2019 09:00
[2019-06-10 11:04] VITALS: BP 114/62; PULSE 70; RESP 16
--- NOTE | 2019-06-10 14:21 | CONS ---
Assessment/Plan Assessment/Plan Hospital Course (Demo Recall) Hypertension urgency/emergency-improved Elevated troponin, trending down Small infarct, no ischemia nuclear cardiac perfusion study 06/09/2019 Preserved left ventricular ejection fraction Left bundle branch block ECG Nuclear cardiac perfusion study performed yesterday with small area of infarc t/scar. No evidence of ischemia. Given patient remains asymptomatic, will pursue aggressive medical management Continue aspirin therapy, beta-mirna, statin therapy if no contraindication DC planning Consultation Date/Type/Reason Admit Date/Time Jun 09, 2019 at 08:43 Initial Consult Date Type of Consult Cardiology Date/Time of Note DATE: 06/10/19 TIME: 14:19 24 HR Interval Summary Free Text/Dictation No shortness of breath, chest pain. Complains of right shoulder pain with movement Exam/Review of Systems Vital Signs Vitals Vital Signs Date Temp Pulse Resp B/P (MAP) Pulse Ox O2 O2 Flow FiO2 Time Delivery Rate 06/10/19 97.8 70 16 114/62 96 Room Air 11:04 (79) 06/08/19 2.0 18:45 Intake and Output 06/09/19 06/09/19 06/10/19 1515:00 23:00 07:00 IntakeIntake Total 100 ml 200 ml OutputOutput Total 1 ml BalanceBalance 99 ml 200 ml Exam Constitutional: alert, oriented Head: normocephalic Respiratory: other (Coarse breath sounds bilaterally, no wheezing) Cardiovascular: regular rate and rhythm (S1-S2 heard) Gastrointestinal: soft, non-tender, bowel sounds Extremities: other (No significant edema) Labs Result Diagram: 06/08/19 1441 06/08/19 1441 Medications Medications Current Medications Amlodipine Besylate (Norvasc) 10 mg DAILY PO Last administered on 06/10/19at 08:17; Admin Dose 10 MG; Start 06/08/19 at 19:00 Aspirin (Halfprin) 81 mg DAILY PO Last administered on 06/10/19at 08:16; Admin Dose 81 MG; Start 06/08/19 at 19:00 Clonidine (Catapres) 0.1 mg Q4 PRN PO sbp>160; Start 06/08/19 at 19:00 Latanoprost (Xalatan) 1 drop QHS BOTH EYES Last administered on 06/09/19at 20:12; Admin Dose 1 DROP; Start 06/08/19 at 21:00 Zolpidem Tartrate (Ambien) 5 mg HS MAY REPEAT X 1 PRN PO INSOMNIA; Start 06/08/19 at 19:00 Carvedilol (Coreg) 12.5 mg BID PO Last administered on 06/10/19at 08:16; Admin Dose 12.5 MG; Start 06/08/19 at 21:00 Lisinopril (Zestril) 20 mg DAILY PO Last administered on 06/10/19at 08:17; Admin Dose 20 MG; Start 06/08/19 at 19:00 Atorvastatin Calcium (Lipitor) 20 mg HS PO Last administered on 06/09/19at 20:12; Admin Dose 20 MG; Start 06/09/19 at 21:00 Melchor Elkins DO Jun 10, 2019 14:21
--- NOTE | 2019-06-11 04:50 | DS ---
DATE OF ADMISSION: 06/09/2019 DATE OF DISCHARGE: 06/10/2019 DISCHARGE DIAGNOSES: 1. An 84-year-old female with hypertensive urgency, resolved. 2. Atypical chest pain. 3. Right shoulder pain. HOSPITAL COURSE: An 84-year-old [place] female with history of hypertension, presented to emergency room with complaint of chest pain for about 1 hour prior to arrival. Initially, patient was found t o have markedly elevated blood pressures. This was stabilized in the emergency room. Upon further e valuation, the patient reported right shoulder pain. The patient was evaluated by Dr. Elkins. A 2D echo showed preserved LV function with EF of 60%. The patient had elevated troponins due to demand ischemia. She underwent a Lexiscan stress test. The t ype and distribution of the scintigraphic abnormalities were most consistent with a small irreversibl e perfusion defect in the inferolateral wall. Again, there were no wall motion abnormalities. Her b lood pressure remained stable during the hospitalization. I made some adjustments to her antihyperte nsives. The patient will have a right shoulder x-ray prior to discharge and she will be referred to orthopedics for further evaluation. The patient is in a stable condition for discharge. MEDICATIONS ON DISCHARGE: 1. Lipitor 20 mg at bedtime. 2. Carvedilol 12.5 mg b.i.d. 3. Hydrochlorothiazide 25 mg p.o. daily. 4. Lisinopril 20 mg p.o. daily. 5. Amlodipine 10 mg daily. 6. Aspirin 81 mg daily. 7. Latanoprost 2.5 mL 1 drop to both eyes at bedtime. 8. Clonidine 0.1 mg as needed. DISCHARGE FOLLOWUP: 1. Follow up with PCP in 1 week. 2. Follow up with the orthopedic surgeon for further evaluation of right shoulder pain. Dictated By: TIAN SCOTT/ALEXANDRA Conf#: [id number] DID#: [id number] CC: AYANA ELKINS DO;*EndCC*
== END 2019-06-10 15:53 | disposition home or self-care (01) | DRG 305 ==
LOC: E/R 14:31 → TEL 16:46 → OBSVTOIN 06-09 08:43
PROVIDERS: ADMIT Internal Medicine; ATTEND Internal Medicine
DX: I16.0 Hypertensive urgency (principal); I16.1 Hypertensive emergency; R07.89 Other chest pain; M25.511 Pain in right shoulder; I44.7 Left bundle-branch block, unspecified; Z79.82 Long term (current) use of aspirin
CPT/HCPCS: 71045; 78452; 80048; 82550; 82553; 84484; 85025; 85610; 85730; 93005; 93017; 93306; 96365; 96375; G0378; A9500; A9505; J2785